=== PATIENT | male | born 2000 ===

== ENCOUNTER 2019-05-20 00:14 | Emergency (ER) | payer SELFPAY ==
[2019-05-20] MEDS ORDERED: Adacel (T-DAP) 0.5 ML SYRINGE ONE (00:35)
== END 2019-05-20 00:57 | disposition home or self-care (01) ==
LOC: ERS 00:14
DX: S91.331A Puncture wound without foreign body, right foot, initial encounter (principal); Z23 Encounter for immunization; W45.0XXA Nail entering through skin, initial encounter
CPT/HCPCS: 90471; 90715; 99283